=== PATIENT | male | born 2000 | race Caucasian/White ===

== ENCOUNTER 2019-12-22 08:03 | Emergency (ER) | payer OTHER, SELFPAY ==
--- NOTE | 2019-12-22 09:04 | ER ---
Nurse's Notes [facility] Name: Kenneth Bowman Age: 19 yrs Sex: Male : 2000 Arrival Date: 12/22/2019 Time: 08:05 Bed 5 Private MD: Diagnosis: Acute upper respiratory infection, unspecified Presentation: 12/22 08:14 Chief complaint: Patient states: "I woke up feeling bad so work sent me to make sure I ss didn't have the flu because there are like three people out with it." Pt c/o runny nose, body aches and headache that began this morning. Coronavirus screen: The patient has NOT traveled to [place] in the past 14 days. Proceed with normal triage procedures. Ebola Screen: Patient denies exposure to infectious person. Patient denies travel to an Ebola-affected area in the 21 days before illness onset. Initial Sepsis Screen: Does the patient meet any 2 criteria? No. Patient's initial sepsis screen is negative. Does the patient have a suspected source of infection? No. Patient's initial sepsis screen is negative. Risk Assessment: Do you want to hurt yourself or someone else? Patient reports no desire to harm self or others. 08:14 Method Of Arrival: Ambulatory ss 08:14 Acuity: DARIEL 4 ss 08:14 Onset of symptoms was December 22, 2019. sv Triage Assessment: 08:13 General: Appears in no apparent distress. uncomfortable, well developed, Behavior is sv calm, cooperative, appropriate for age. Pain: Complains of pain in face and scalp. Neuro: Level of Consciousness is awake, alert, obeys commands, Oriented to person, place, time, situation, Moves all extremities. Full function Gait is steady. Cardiovascular: Patient's skin is warm and dry. Respiratory: Airway is patent Respiratory effort is even, unlabored, Respiratory pattern is regular, symmetrical. Derm: Skin is intact, Skin is pink, warm \\T\\ dry. Musculoskeletal: Range of motion: intact in all extremities. Historical: - Allergies: 08:16 No Known Allergies; ss - Home Meds: 08:16 None [Active]; ss - PMHx: 08:16 None; ss - PSHx: 08:16 None; ss - Immunization history:: Adult Immunizations up to date. - Social history:: Smoking status: Patient denies any tobacco usage or history of. Screenin:12 Abuse screen: Denies threats or abuse. Denies injuries from another. Nutritional sv screening: No deficits noted. Tuberculosis screening: No symptoms or risk factors identified. Fall Risk None identified. Assessment: 08:26 Reassessment: Patient appears in no apparent distress at this time. No changes from sv previously documented assessment. 09:09 Reassessment: Patient appears in no apparent distress at this time. No changes from sv previously documented assessment. Patient and/or family updated on plan of care and expected duration. Pain level reassessed. Patient is alert, oriented x 3, equal unlabored respirations, skin warm/dry/pink. Vital Signs: 08:12 BP 142 / 88; Pulse 97; Resp 17; Temp 97.6(O); Pulse Ox 98% on R/A; Weight 129.27 kg; ss Height 6 ft. 1 in. (185.42 cm); Pain 5/10; 09:09 BP 138 / 95; Pulse 92; Resp 16; Pulse Ox 99% ; sv 08:12 Body Mass Index 37.60 (129.27 kg, 185.42 cm) ED Course: 08:05 Patient arrived in ED. as 08:06 Manjinder Sosa PA is PHCP. [facility] 08:06 Antonio Rivera MD is Attending Physician. [facility] 08:07 Danielle Benson, REMIGIO is Primary Nurse. sv 08:12 Arm band placed on Patient placed in an exam room, on a stretcher. sv 08:12 Patient has correct armband on for positive identification. Bed in low position. Call sv light in reach. Pulse ox on. NIBP on. Door closed. Head of bed elevated. 08:15 Triage completed. ss 08:18 Nurse Practitioner and/or Physician Senior Data Mining Analyst to see patient. sv 08:26 Flu and/or RSV swab sent to lab. Strep swab sent to lab. sv 08:37 Awaiting lab results. sv 08:39 Throat Culture Sent. sv 09:08 No provider procedures requiring assistance completed. Patient did not have IV access sv during this emergency room visit. Administered Medications: No medications were administered Outcome: 09:03 Discharge ordered by . [facility] 09:08 Discharged to home ambulatory. sv 09:08 Condition: stable 09:08 Discharge instructions given to patient, Instructed on discharge instructions, follow up and referral plans. medication usage, Demonstrated understanding of instructions, follow-up care, medications, Prescriptions given X 1. 09:10 Patient left the ED. sv Signatures: Danielle Benson, RN RN Majninder Bella PA PA jmm Martinez, Amelia as Smirch, Shelby, REMIGIO RN ss
--- NOTE | 2019-12-22 09:04 | EDPHYS ---
Physician Documentation [facility] Name: Kenneth Bowman Age: 19 yrs Sex: Male : 2000 Arrival Date: 12/22/2019 Time: 08:05 Bed 5 Private MD: ED Physician Antonio Rivera HPI: 12/22 08:21 This 19 yrs old Male presents to ER via Ambulatory with complaints of Flu jmm Symptoms. 08:21 The patient or guardian reports cough. Onset: The symptoms/episode began/occurred jmm today. Modifying factors: The symptoms are alleviated by nothing. the symptoms are aggravated by nothing. Modifying factors: The symptoms are alleviated by. Associated signs and symptoms: Pertinent positives: rhinorrhea, sore throat, Pertinent negatives: ear ache, nausea, vomiting. Patient states he awoke today with congestion, sore throat. Denies fever. . Historical: - Allergies: 08:16 No Known Allergies; ss - Home Meds: 08:16 None [Active]; ss - PMHx: 08:16 None; ss - PSHx: 08:16 None; ss - Immunization history:: Adult Immunizations up to date. - Social history:: Smoking status: Patient denies any tobacco usage or history of. ROS: 08:21 Constitutional: Negative for fever, chills, and weight loss, Cardiovascular: Negative jmm for chest pain, palpitations, and edema. 08:21 ENT: Positive for sinus congestion, sore throat. 08:21 Respiratory: Positive for cough. 08:21 All other systems are negative. Exam: 08:21 Constitutional: This is a well developed, well nourished patient who is awake, alert, jmm and in no acute distress. Head/Face: atraumatic. Eyes: EOMI, no conjunctival erythema appreciated 08:21 Neck: Trachea midline, Supple Chest/axilla: Normal chest wall appearance and motion. Cardiovascular: Regular rate and rhythm. No edema appreciated Respiratory: Normal respirations, no respiratory distress appreciated Abdomen/GI: Non distended, soft Back: Normal ROM Skin: General appearance color normal MS/ Extremity: Moves all extremities, no obvious deformities appreciated, no edema noted to the lower extremities Neuro: Awake and alert, normal gait Psych: Behavior is normal, Mood is normal, Patient is cooperative and pleasant 08:21 ENT: Posterior pharynx: Tonsils: enlarged on the right, enlarged on the left, with erythema, erythema, that is moderate. Vital Signs: 08:12 BP 142 / 88; Pulse 97; Resp 17; Temp 97.6(O); Pulse Ox 98% on R/A; Weight 129.27 kg; ss Height 6 ft. 1 in. (185.42 cm); Pain 5/10; 09:09 BP 138 / 95; Pulse 92; Resp 16; Pulse Ox 99% ; sv 08:12 Body Mass Index 37.60 (129.27 kg, 185.42 cm) ss MDM: 08:08 Patient medically screened. [facility] 09:01 Data reviewed: vital signs, nurses notes. Counseling: I had a detailed discussion with [facility] the patient and/or guardian regarding: the historical points, exam findings, and any diagnostic results supporting the discharge/admit diagnosis, lab results, the need for outpatient follow up, to return to the emergency department if symptoms worsen or persist or if there are any questions or concerns that arise at home. ED course: Patient is alert and non toxic in appearance in the ED. No signs of resp distress appreciated. Patient is advised to follow up with pcp and otherwise given strict return precautions. patient understood and agrees with the plan of care. . 12/22 08:21 Order name: Flu; Complete Time: 09: [facility] 12/22 08:21 Order name: Strep; Complete Time: 09: [facility] 12/22 08:38 Order name: Throat Culture EDMS Administered Medications: No medications were administered Disposition: 17:44 Co-signature as Attending Physician, Antonio Rivera MD Chart signed for administrative ps1 purposes.. Disposition: 12/22/19 09:03 Discharged to Home. Impression: Acute upper respiratory infection, unspecified. - Condition is Stable. - Discharge Instructions: Upper Respiratory Infection, Adult. - Prescriptions for Bromfed DM 2- 30-10 mg/5 mL Oral syrup - take 10 milliliter by ORAL route every 4 hours; 1 bottle. - Medication Reconciliation Form, Thank You Letter, Antibiotic Education, Prescription Opioid Use, Work release form form. - Follow up: Private Physician; When: 2 - 3 days; Reason: Recheck today's complaints, Continuance of care, Re-evaluation by your physician. Signatures: [facility] EDDanielle Aguilar RN Manjinder Carbajal PA PA jmm Smirch, Shelby, RN RN ss Antonio Rivera MD MD ps1 Corrections: (The following items were deleted from the chart) 09: 09:03 12/22/2019 09:03 Discharged to Home. Impression: Acute upper respiratory sv infection, unspecified. Condition is Stable. Forms are Medication Reconciliation Form, Thank You Letter, Antibiotic Education, Prescription Opioid Use. Follow up: Private Physician; When: 2 - 3 days; Reason: Recheck today's complaints, Continuance of care, Re-evaluation by your physician. zee
[2019-12-22 09:17] VITALS: TEMP 97.6
[2019-12-22 09:18] VITALS: BP 138/95; O2SAT 99
== END 2019-12-22 09:10 | disposition home or self-care (01) ==
LOC: ER 08:03
DX: J06.9 Acute upper respiratory infection, unspecified (principal)
CPT/HCPCS: 87070; 87081; 87804; 99283